=== PATIENT | female | born 1930 | race Caucasian/White ===

== ENCOUNTER 2018-06-04 05:19 | Inpatient (IN) | payer MEDICARE, OTHER, MEDICAID ==
[2018-06-04 11:23] LABS: Bacteria/HPF None Seen HPF (None Seen); Bilirubin Negative (Negative); Blood, Urine Negative (Negative); Clarity CLEAR (Clear); Glucose, Urine (Dipstick) Negative (Negative); Leukocyte Trace (Negative); Nitrite Negative (Negative); Protein, Urine (Dipstick) Negative (Neg-Trace); RBC/HPF 0-3 HPF (0-3); Specific Gravity, Urine 1.013 (1.002-1.036); Urobilinogen 0.2 mg/dL (0.2-1.0)
[2018-06-04 11:24] LABS: Hyaline Casts/LPF 0-3 HYALINE CAST LPF (0-3 Hyaline); Other Casts/LPF None Seen LPF (0-3 Hyaline); Pathc Cast-AUWi Flag 2.61 (0-2.49)
[2018-06-04 11:25] LABS: Renal Epithelial None Seen HPF (0-3); Transitional Epithelial NONE SEEN HPF (0-3)
--- NOTE | 2018-06-04 11:28 | CT ---
CT BRAIN: Date: 06-04-18 Provided Clinical History: Shortness of breath. Weakness. FINDINGS: Comparison is made with the examination performed 10-18-12. Extensive post-operative changes involving the frontal and parietal skull near the vertex are again d emonstrated. Encephalomalacia related to prior tumor resection involving the right high frontoparieta l region is demonstrated. The ventricular system is unchanged in appearance. There is ex vacuo dilata tion of the lateral ventricle on the right. There is no evidence for intracranial hemorrhage or mass effect. There are multiple small lucencies present throughout the remaining frontal and parietal calv arium. This appears more conspicuous than on the prior examination. This could reflect radiation hines ge. No overt soft tissue mass is apparent. IMPRESSION: 1. No evidence for intracranial hemorrhage or mass effect. 2. Extensive post-operative changes are again demonstrated. Appearance of the calvarium as described above. As indicated, follow up MR brain could be performed. POS: [facility]KA
[2018-06-04 11:41] LABS: CKMB 1.3 ng/mL (0-6.6); Troponin I 0.018 ng/mL (< 0.028)
[2018-06-04 11:42] LABS: ALT (SGPT) 13 U/L (8-55); AST (SGOT) 20 U/L (5-34); Albumin 3.2 g/dL (3.4-4.8); Alkaline Phosphatase 63 U/L (40-150); Anion Gap 12 mmol/L (10-20); BUN (Urea Nitrogen) 15 mg/dL (9.8-20.1); Bilirubin, Total 0.4 mg/dL (0.2-1.2); CK (CPK) 24 U/L (29-168); Calc. Creatinine Clearance 0 mL/min (70-130); Calcium 9.4 mg/dL (7.8-10.44); Carbon Dioxide 25 mmol/L (23-31); Chloride 107 mmol/L (98-107); Estimated GFR-MDRD 56; Globulin 4.4 g/dL (2.4-3.5); Glucose 95 mg/dL (83-110); Potassium 4.5 mmol/L (3.5-5.1); Protein, Total 7.6 g/dL (6.0-8.3); Sodium 139 mmol/L (136-145)
[2018-06-04 11:47] LABS: Red Blood Cell (RBC) Count 4.07 mill/uL (4.20-5.40); White Blood Cell (WBC) Count 7.3 thou/uL (4.8-10.8)
[2018-06-04 11:48] LABS: Hemoglobin 13.2 g/dL (12.0-16.0); Mean Corpuscular HGB CONC 32.5 g/dL (32.0-36.0); Mean Corpuscular Hemoglobin 32.5 pg (27.0-31.0); Mean Corpuscular Volume 99.9 fL (78.0-98.0); RBC Distribution Width 13.3 % (11.5-14.5)
[2018-06-04 11:49] LABS: #Lymphocytes 1.3 thou/uL (1.20-3.40); #Neutrophils 5.1 thou/uL (1.40-6.50); %Basophils 0.3 % (0.0-1.0); %Eosinophils 2.2 % (0.0-10.0); %Lymphocytes 17.8 % (21.0-51.0); %Monocytes 9.9 % (0.0-10.0); %Neutrophils 69.8 % (42.0-75.0); Mean Platelet Volume 7.1 fL (7.4-10.4); Platelet Count 292 thou/uL (130-400)
[2018-06-04 11:50] LABS: #Eosinphils 0.2 thou/uL (0.0-0.7); #Monocytes 0.7 thou/uL (0.11-0.59)
--- NOTE | 2018-06-04 12:03 | RAD ---
PORTABLE CHEST: Date: 06-04-18 Provided Clinical History: Shortness of breath. FINDINGS: Comparison is made with examination from 05-31-18. The cardiac and mediastinal silhouette is unchanged in appearance. There is a somewhat nodular densit y in the right lower lung zone laterally. The left lung appears clear. Multiple surgical clips overli e the left hemithorax. Vascular calcifications are seen. No pleural fluid or pneumothorax apparent. IMPRESSION: 1. Nodular density at right lung base. This should be further investigated with PA and lateral views of the chest. Code T POS: [facility]KA
[2018-06-04] MEDS ORDERED: HYDROcodone/Acetaminophen 5/325 mg Tablet PO PRN (13:29)
[2018-06-04] MEDS ORDERED: Acetaminophen 325 MG TAB PO PRN (13:29)
[2018-06-04] MEDS ORDERED: Ondansetron ODT 4 MG TAB PO PRN (13:29)
[2018-06-04] MEDS ORDERED: Loperamide HCl 2 MG CAP PO PRN (13:29)
--- NOTE | 2018-06-04 16:52 | HP ---
DATE OF ADMISSION: 06/04/2018 CHIEF COMPLAINT: Increasing weakness. HISTORY OF PRESENT ILLNESS: This is an 87-year-old female with a history of dementia, brain tumor, l eft-sided breast cancer, Parkinson's disease, multiple TIAs, possibly a stroke in the past, comes in with increasing weakness. The patient at the baseline as of last month could feed herself with the h elp and assist, could walk with a walker. She could also turn and pivot and transfer with the help f rom bed to the chair, but past 1 month, family has noticed there is a significant decline in overall strength and patient no longer can feed herself. She appears to be more confused seem to be having d ifficulty communicating and completing her sentences. So patient's family brought the patient here to be further evaluated. PAST MEDICAL HISTORY: Significant for Parkinson's, brain tumor, left breast cancer, dementia, hypert ension, TIAs, possible stroke x1. PAST SURGICAL HISTORY: Significant for, 1. Brain tumor resection that was benign in nature, followed by radiation. 2. Left breast cancer removal. REVIEW OF SYSTEMS: Constitutional: The patient does not report any pain, fever or chills. HEENT: The patient denies any eye pain or drainage, vision changes. Denies any rhinorrhea or sore throat. Denies any discharge from the ears. Cardiovascular: The patient denies any chest pain or palpitatio ns. Respiratory: The patient denies any cough or shortness of breath, wheezes or rales. Gastrointe stinal: The patient denies any nausea or vomiting or constipation. Genitourinary: The patient wong es any dysuria or hematuria. Neurologic: Patient complains of increasing weakness and for more deta ils, please see HPI. PHYSICAL EXAMINATION: VITAL SIGNS: Blood pressure 140/80, heart rate 78, respiratory rate 18, pulse 84. CONSTITUTIONAL: Vital signs reviewed. Patient is afebrile. Vital signs within normal limits. HEENT: Normocephalic, atraumatic head. Eye, eyelids and conjunctivae are normal for inspection. Pu pils are round and reactive to light. Ears and external canal are within normal limits. No redness or discharge seen. Trachea is in the midline. No signs of any sore throat. RESPIRATORY AND CHEST: Examination is within normal limits. No wheezes or rales. Good airflow. CARDIOVASCULAR: Cardiovascular assessment is within normal limits. Regular rate and rhythm. No mur murs. ABDOMEN: Soft, NTND. +4 bowel sounds. NEUROLOGY: Mild dementia. Some confusion, but patient is alert and oriented x2. Upper extremity st rength is within normal limits. Lower extremity strength and motor strength is decreased. Gait not examined. PSYCHIATRIC: The patient is alert and oriented x2. Normal affect. ASSESSMENT AND PLAN: 1. Weakness: CT of the head was done which showed significant changes that has been stable over the past few years. CT shows the past tumor resection and radiation changes, multiple chronic lacunar c hanges, so patient will be continued on home aspirin and statin. Neurology will be consulted. I hav e deferred the MRI as the management is not going to change irrespective of the findings on the CT of the head. 2. Code status, discussed the patient's code status with the family. She is DNR. No aggressive mich sures to keep the patient alive. 3. Hypertension. The patient's blood pressure medications will be on hold for now. We will let the permissive high blood pressures. The medications to be restarted when the patient goes back to her rehabilitation. 4. Possible discharge tomorrow back to the senior living that she is from. 5. PT, OT and speech has been consulted and speech evaluates the patient. We will restart the patient on the diet depending upon the recommendations. Right now, I will just continue with some I V fluids to keep the patient hydrated, but patient wants to try something p.o., which will be deferre d until the speech evaluates the patient.
[2018-06-04] MEDS: Sodium Chloride 0.9% 1,000 ML IV SCH ×2 (17:37→21:06)
[2018-06-04] MEDS ORDERED: Prevnar 13-Val Conj/PF 0.5 ML SYRINGE IM ONE (18:15)
[2018-06-04] MEDS: Simvastatin 5 MG TAB PO SCH (21:06)
[2018-06-05 04:25] LABS: #Eosinphils 0.2 thou/uL (0.0-0.7); #Lymphocytes 1.4 thou/uL (1.20-3.40); #Monocytes 0.6 thou/uL (0.11-0.59); #Neutrophils 2.9 thou/uL (1.40-6.50); %Eosinophils 3.4 % (0.0-10.0); %Lymphocytes 27.9 % (21.0-51.0); %Monocytes 11.6 % (0.0-10.0); %Neutrophils 57.1 % (42.0-75.0); Mean Corpuscular HGB CONC 32.4 g/dL (32.0-36.0); Mean Corpuscular Hemoglobin 32.4 pg (27.0-31.0); Mean Platelet Volume 7.3 fL (7.4-10.4); Platelet Count 246 thou/uL (130-400); RBC Distribution Width 13.3 % (11.5-14.5); White Blood Cell (WBC) Count 5.1 thou/uL (4.8-10.8)
[2018-06-05 04:46] LABS: Anion Gap 7 mmol/L (10-20); BUN (Urea Nitrogen) 15 mg/dL (9.8-20.1); Calc. Creatinine Clearance 50 mL/min (70-130); Calcium 8.7 mg/dL (7.8-10.44); Carbon Dioxide 25 mmol/L (23-31); Chloride 112 mmol/L (98-107); Estimated GFR-MDRD 74; Glucose 85 mg/dL (83-110); Potassium 4.1 mmol/L (3.5-5.1); Sodium 140 mmol/L (136-145)
[2018-06-05] MEDS: Sodium Chloride 0.9% 1,000 ML IV SCH (08:16)
[2018-06-05] MEDS: Cyanocobalamin (Vitamin B-12) 1,000 MCG TAB PO SCH (08:16)
[2018-06-05] MEDS: Aspirin 81 mg Enteric Coated Tablet PO SCH (08:16)
[2018-06-05] MEDS: Enoxaparin Sodium 40 MG/0.4 ML SYRINGE SC SCH (08:21)
[2018-06-05] MEDS ORDERED: Metoprolol Tartrate 25 MG TAB PO SCH (12:00)
[2018-06-05] MEDS: cefTRIAXone\\ROCEPHIN 1 GM in Sodium Chloride 0.9% 100 ML IVPB SCH (12:33)
[2018-06-05 14:53] VITALS: BMI 21.3
[2018-06-05] MEDS: Simvastatin 5 MG TAB PO SCH (21:26)
[2018-06-05] MEDS: Metoprolol Tartrate 25 MG TAB PO SCH (21:26)
--- NOTE | 2018-06-05 22:01 | PDOC.PN ---
- Subjective Encounter Start Date: 06/05/18 Encounter Start Time: 13:00 Patient seen and examined for Gen weakness. No new complaints. No new focal weakness. No overnight events - Objective Resuscitation Status: Resuscitation Status DNR:Do Not Resuscitate MAR Reviewed: Yes Vital Signs & Weight: Vital Signs (12 hours) Temp Pulse Resp BP Pulse Ox 06/05/18 20:00 97.9 F 66 16 129/71 94 L 06/05/18 16:00 97.8 F 66 18 147/85 H 94 L 06/05/18 11:00 97.7 F 100 18 158/91 H 95 06/05/18 10:27 97.8 F 77 16 173/105 H 95 Weight Admit Weight 132 lb 1 oz Weight 132 lb 1 oz I&O: 06/04/18 06/05/18 06/06/18 06:59 06:59 06:59 Intake Total 587 1450 Balance 587 1450 Result Diagrams: 06/05/18 03:58 06/05/18 03:58 Radiology Reviewed by me: Yes (CT brain - No acute findings) Phys Exam - Physical Examination Constitutional: NAD Respiratory: no wheezing, no rhonchi Cardiovascular: RRR, no rub Gastrointestinal: soft, non-tender, positive bowel sounds Musculoskeletal: no edema Neurological: moves all 4 limbs No new focal findings Dx/Plan - Plan plan discussed w/ family, PT/OT, DVT proph w/SCDs IMPRESSION: 1. Gen weakness/ ?CVA - improved 2. Recent UTI - on Atbx 3 HTN 4. DNR 5. Dementia 6. Parkinson disease 7. h/o TIAs PLAN: Await Neuro input Cont ASA Cont Atbx for recent UTI MT meds list not available Cont current meds as below Review of Systems - Review of Systems Respiratory: negative: Cough, Dry, Shortness of Breath, Hemoptysis, SOB with Excertion, Pleuritic Pain, Sputum, Wheezing Cardiovascular: negative: chest pain, palpitations, orthopnea, paroxysmal nocturnal dyspnea, edema, light headedness, other - Medications/Allergies Allergies/Adverse Reactions: Allergies Allergy/AdvReac Type Severity Reaction Status Date / Time No Known Allergies Allergy Verified 06/01/18 06:35 Medications: Current Medications Acetaminophen (Tylenol) 650 mg PO Q4H PRN PRN Reason: Headache/Fever or Pain Hydrocodone Bitart/Acetaminophen ([place] 5/325) 1 tab PO Q4H PRN PRN Reason: Moderate Pain (4-6) Aspirin (Ecotrin) 81 mg PO DAILY [facility] Last Admin: 06/05/18 08:16 Dose: Not Given Cyanocobalamin (Vitamin B-12) 1,000 mcg PO DAILY [facility] Last Admin: 06/05/18 08:16 Dose: Not Given Enoxaparin Sodium (Lovenox) 40 mg SC 0900 [facility] Last Admin: 06/05/18 08:21 Dose: 40 mg Sodium Chloride (Normal Saline 0.9%) 1,000 mls @ 75 mls/hr IV .[id number] [facility] Last Admin: 06/05/18 08:16 Dose: 1,000 mls Ceftriaxone Sodium 1 gm/ (Sodium Chloride) 100 mls @ 200 mls/hr IVPB Q24HR [facility] Last Admin: 06/05/18 12:33 Dose: 100 mls Loperamide HCl (Imodium) 2 mg PO PRN PRN PRN Reason: Diarrhea/Loose Stools Metoprolol Tartrate (Lopressor) 12.5 mg PO BID [facility] Last Admin: 06/05/18 21:26 Dose: 12.5 mg Ondansetron HCl (Zofran Odt) 4 mg PO Q6H PRN PRN Reason: Nausea/Vomiting Simvastatin (Zocor) 10 mg PO HS [facility] Last Admin: 06/05/18 21:26 Dose: 10 mg
--- NOTE | 2018-06-06 05:08 | CON ---
DATE OF CONSULTATION: 06/05/2018 REFERRING PROVIDER: Dr. Lola Patel. REASON FOR CONSULTATION: Increasing weakness. HISTORY OF PRESENT ILLNESS: Ms. Domingo is a pleasant 87-year-old female with multiple medical problems, has been consulted for evaluation of increasing weakness. History is very limited as patient is a poor historian, thus most of the history is obtained from the patient's dictated H and P note. Apparently, the patient has a history of brain tumor, dementia, Parkinson disease, and multiple TIAs. She is currently living in a prison. She was sent to a prison as she was noted to have increasing weakness according to the dictated H&P note. Patient was able to feed herself and assist in other activities. She was able to walk with a walker. This was one month ago. Over the past 1 month, family have noticed that she is requiring help to transfer from bed to a chair. She is also requiring help to feed herself. She is also having difficulty with communicating and completing sentences. PAST MEDICAL HISTORY: Significant for history of brain tumor post-resection, Parkinson disease, left breast cancer, dementia, hypertension, TIAs, and possible stroke. PAST SURGICAL HISTORY: Significant for brain tumor resection followed by radiation, left breast cancer removal. SOCIAL HISTORY: She lives in a prison. She does not smoke cigarettes, drink alcohol or use illicit drugs. CURRENT MEDICATIONS: Please review MAR. ALLERGIES: No known drug allergies. FAMILY HISTORY: Noncontributory. REVIEW OF SYSTEMS: As mentioned above in the HPI, otherwise negative. PHYSICAL EXAMINATION: VITAL SIGNS: Blood pressure of 147/85, pulse of 66, temperature of 97.8, respirations of 18, O2 sats of 94% on room air. GENERAL: A well-developed, well-nourished female in no apparent distress. RESPIRATORY: Clear to auscultation bilaterally. CARDIOVASCULAR: Regular rate and rhythm. NEUROLOGIC: Mental status: The patient is awake, alert, oriented to person. She was able to state her first and last name. She was able to state the name of the hospital and name of the town and [facility]. She is not able to answer current date, month, or year. She is able to follow simple commands as well as 2 step commands. Speech and language appears fluent. Cranial nerves: Pupils are 2 mm and reactive. Visual bland are full to threat. External muscles are intact. No nystagmus. Face is symmetric. Tongue and uvula are midline. Motor exam showed normal tone and bulk with a 5/5 strength in both upper extremities. There was no pronator drift noted in both upper extremities. Her strength in the right lower extremity is 5/5, strength in the left lower extremity is 4+/5. Sensory: Sensation appears intact. Deep tendon reflexes: 2+ reflexes in both upper and lower extremities. Babinski: Plantar responses flexion bilaterally. Coordination intact to [id number] and finger tapping bilaterally. LABORATORY DATA: Reviewed which included CBC, CMP. Urinalysis showing 4-6 wbc' s with trace leukocyte esterase and also 4-6 squamous epithelial cells present and nitrites were negative. IMAGING STUDIES: CT head without contrast was reviewed, which showed large area of encephalomalacia in the right posterior frontoparietal region with evidence for a right craniotomy. IMPRESSION: 1. Weakness. 2. Right frontoparietal brain tumor post-resection. 3. History of transient ischemic attacks. 4. Dementia. Ms. Domingo is a pleasant 87-year-old female who presented with the increasing weakness, it is difficult to how she is different neurologically compared to her baseline. I have spoken with the nurse of the patient who mentioned that patient was transferred from the prison, have noted increasing fatigue, tiredness, and weakness. Although on my exam, I did not appreciate any major weakness except the left lower extremity being weak which could be from her prior surgery. She has dementia, which also can be causing some of the deconditioning of her symptoms. At this time, I will recommend continuing current medical management. If there is a concern for new stroke, I would recommend obtaining MRI brain with and without contrast. No further neurologic workup needed from my standpoint otherwise. PERRY
[2018-06-06] MEDS: Sodium Chloride 0.9% 1,000 ML IV SCH (05:10)
[2018-06-06] MEDS: Aspirin 81 mg Enteric Coated Tablet PO SCH (08:34)
[2018-06-06] MEDS: Cyanocobalamin (Vitamin B-12) 1,000 MCG TAB PO SCH (08:37)
[2018-06-06] MEDS: Enoxaparin Sodium 40 MG/0.4 ML SYRINGE SC SCH (08:37)
[2018-06-06] MEDS: Metoprolol Tartrate 25 MG TAB PO SCH (08:44)
[2018-06-06 09:41] LABS: #Eosinphils 0.2 thou/uL (0.0-0.7); #Lymphocytes 1.5 thou/uL (1.20-3.40); #Monocytes 0.7 thou/uL (0.11-0.59); #Neutrophils 5.3 thou/uL (1.40-6.50); %Basophils 0.2 % (0.0-1.0); %Eosinophils 2.1 % (0.0-10.0); %Lymphocytes 19.6 % (21.0-51.0); %Monocytes 8.8 % (0.0-10.0); %Neutrophils 69.2 % (42.0-75.0); Hemoglobin 13.6 g/dL (12.0-16.0); Mean Corpuscular Hemoglobin 32.8 pg (27.0-31.0); Mean Corpuscular Volume 99.2 fL (78.0-98.0); Platelet Count 262 thou/uL (130-400); RBC Distribution Width 13.4 % (11.5-14.5); Red Blood Cell (RBC) Count 4.16 mill/uL (4.20-5.40); White Blood Cell (WBC) Count 7.7 thou/uL (4.8-10.8)
[2018-06-06 09:46] LABS: Anion Gap 12 mmol/L (10-20); BUN (Urea Nitrogen) 13 mg/dL (9.8-20.1); Calc. Creatinine Clearance 45 mL/min (70-130); Calcium 9.1 mg/dL (7.8-10.44); Carbon Dioxide 22 mmol/L (23-31); Chloride 110 mmol/L (98-107); Estimated GFR-MDRD 66; Glucose 131 mg/dL (83-110); Sodium 140 mmol/L (136-145)
[2018-06-06 09:51] LABS: Troponin I 0.013 ng/mL (< 0.028)
[2018-06-06] MEDS: cefTRIAXone\\ROCEPHIN 1 GM in Sodium Chloride 0.9% 100 ML IVPB SCH (12:08)
--- NOTE | 2018-06-06 15:05 | PDOC.EVN ---
Event Note - Event Note Event Note: ACP note - Plan of care discussed with patient and son in law. Diagnosis - Gen weakness with suspected CVA. Family declined MRI brain. They agreed with continue ASA 81 mg. Code Status - DNR. Time spent - 20 min.
--- NOTE | 2018-06-06 15:07 | PDOC.PN ---
- Subjective Encounter Start Date: 06/06/18 Encounter Start Time: 09:00 Patient seen and examined for Gen weakness. Patient was transferred to Stroke unit due to HR in 170s on BP monitor. No new focal deficits. No CP/SOB/ diaphoresis. No new complaints. No overnight events - Objective Resuscitation Status: Resuscitation Status DNR:Do Not Resuscitate MAR Reviewed: Yes Vital Signs & Weight: Vital Signs (12 hours) Temp Pulse Resp BP Pulse Ox 06/06/18 11:44 97.8 F 64 14 140/62 96 06/06/18 09:48 94 L 06/06/18 08:46 160 H 20 95/65 99 06/06/18 07:58 98.1 F 74 16 160/78 H 94 L 06/06/18 04:00 98.5 F 64 16 148/79 H 94 L Weight Admit Weight 132 lb 1 oz Weight 132 lb 1 oz I&O: 06/05/18 06/06/18 06/07/18 06:59 06:59 06:59 Intake Total 587 1450 300 Balance 587 1450 300 Result Diagrams: 06/06/18 09:13 06/06/18 09:13 Additional Labs: Laboratory Tests 06/06/18 06/06/18 09:13 12:15 Troponin I 0.013 0.020 EKG Reviewed by me: Yes (Tele ST) Phys Exam - Physical Examination Constitutional: NAD Respiratory: no wheezing, no rhonchi Cardiovascular: RRR, no rub Gastrointestinal: soft, non-tender, positive bowel sounds Musculoskeletal: no edema Neurological: non-focal, moves all 4 limbs No new focal deficits. Dx/Plan - Plan DVT proph w/SCDs IMPRESSION: 1. Gen weakness/ ?CVA - improved 2. Recent UTI - on IV Ceftriaxone 3 HTN 4. Tachyarrhythmia on medical floor ?SVT 5. Dementia 6. Parkinson disease 7. h/o TIAs PLAN: Neuro input appreciated No MRI per family request Cont ASA Cont Ceftriaxone Cont current meds as below Tele monitoring Case d/w Dr Almanza - who recommeded to continue ASA 81 mg. High risk of bleeding if dose increased. Review of Systems - Review of Systems Respiratory: negative: Cough, Dry, Shortness of Breath, Hemoptysis, SOB with Excertion, Pleuritic Pain, Sputum, Wheezing Cardiovascular: negative: chest pain, palpitations, orthopnea, paroxysmal nocturnal dyspnea, edema, light headedness, other - Medications/Allergies Allergies/Adverse Reactions: Allergies Allergy/AdvReac Type Severity Reaction Status Date / Time No Known Allergies Allergy Verified 06/01/18 06:35 Medications: Current Medications Acetaminophen (Tylenol) 650 mg PO Q4H PRN PRN Reason: Headache/Fever or Pain Hydrocodone Bitart/Acetaminophen ([place] 5/325) 1 tab PO Q4H PRN PRN Reason: Moderate Pain (4-6) Aspirin (Ecotrin) 81 mg PO DAILY [facility] Last Admin: 06/06/18 08:34 Dose: 81 mg Cyanocobalamin (Vitamin B-12) 1,000 mcg PO DAILY [facility] Last Admin: 06/06/18 08:37 Dose: 1,000 mcg Sodium Chloride (Normal Saline 0.9%) 1,000 mls @ 75 mls/hr IV .[id number] [facility] Last Admin: 06/06/18 05:10 Dose: 1,000 mls Ceftriaxone Sodium 1 gm/ (Sodium Chloride) 100 mls @ 200 mls/hr IVPB Q24HR [facility] Last Admin: 06/06/18 12:08 Dose: 100 mls Loperamide HCl (Imodium) 2 mg PO PRN PRN PRN Reason: Diarrhea/Loose Stools Metoprolol Succinate (Toprol Xl) 50 mg PO DAILY [facility] Ondansetron HCl (Zofran Odt) 4 mg PO Q6H PRN PRN Reason: Nausea/Vomiting Simvastatin (Zocor) 10 mg PO HS [facility] Last Admin: 06/05/18 21:26 Dose: 10 mg
[2018-06-06] MEDS: Famotidine 20 MG TAB PO SCH (21:45)
[2018-06-06] MEDS: Simvastatin 5 MG TAB PO SCH (21:46)
[2018-06-07] MEDS: Famotidine 20 MG TAB PO SCH (08:03)
[2018-06-07] MEDS: Aspirin 81 mg Enteric Coated Tablet PO SCH (08:03)
[2018-06-07] MEDS: Cyanocobalamin (Vitamin B-12) 1,000 MCG TAB PO SCH (08:03)
[2018-06-07] MEDS: cefTRIAXone\\ROCEPHIN 1 GM in Sodium Chloride 0.9% 100 ML IVPB SCH (11:26)
[2018-06-07 11:59] VITALS: BP 140/60; TEMP 97.5
--- NOTE | 2018-06-08 10:26 | DIS ---
DATE OF DISCHARGE: 06/07/2018 DISCHARGE DISPOSITION: To [place]. DISCHARGE MEDICATIONS: Same as admission medications. No changes were made. Patient was seen and examined on the day of discharge, denies any new complaints, no chest pain, shor tness of breath, palpitations. BRIEF HOSPITAL COURSE: The patient is an 87-year-old female with Parkinson's disease, history of bra in tumor status post resection, dementia and multiple TIAs and CVA in the past, presented to the hosp ital with increasing weakness. Please refer to the history and physical dated 06/04/[address] Aryan Patel for further details. It was unclear which side was more weaker than the other. The patient was admitted to the medical floor by the admitting physician with the diagnosis of genera lized weakness, rule out cerebrovascular accident. The patient was seen by Neurology, Dr. Alba Almanza . CT scan of the brain on admission was negative for acute findings. MRI was offered to the family; however, the family declined since it would not change the management. I discussed with Dr. Alba blum, who recommended to continue aspirin. The patient is at high risk of bleeding if aspirin dose wa s increased. Dr. Almanza recommended to continue the same dose of aspirin. She had an episode of tachy cardia on the medical floor for which she was transferred to the telemetry unit. She did not have an y recurrence of the tachycardia. Please note that on admission, the list of medications were not jose ilable. She was not getting full dose of Lopressor that could be the etiology of the tachycardia. S he will benefit from event monitor if she has recurrent tachycardia episodes. Plan of care was discu ssed with the family in detail. They stated understanding. Please note that patient recently had UT I and completed antibiotics during this hospital stay. For this reason, ciprofloxacin has been disco ntinued. She will continue aspirin, metoprolol, and Zocor. FINAL DIAGNOSES: 1. Generalized weakness with suspected CVA. Symptoms have completely resolved. Possibilities inclu de TIA versus encephalopathy from urinary tract infection. 2. Recent urinary tract infection. Patient completed antibiotics. 3. Hypertension. 4. Tachyarrhythmia on the medical floor, probably SVT. Patient did not have any recurrence while on the tele monitor. 5. Dementia. 6. Parkinson's disease. 7. History of transient ischemic attacks, on aspirin. 8. Chronic kidney disease stage 2. 9. Microcytosis with normal vitamin B12 in the past. The patient is also on vitamin B12 supplementa tion. Plan of care was discussed with the patient and the family in detail. They stated understanding. Total time coordinating the discharge of this patient was 34 minutes.
--- NOTE | 2018-06-10 10:02 | EKG ---
Test Reason : Blood Pressure : / mmHG Vent. Rate : 106 BPM Atrial Rate : 106 BPM P-R Int : 196 ms QRS Dur : 080 ms QT Int : 336 ms P-R-T Axes : 034 -47 026 degrees QTc Int : 446 ms Sinus tachycardia Left anterior fascicular block Possible Anterior infarct (cited on or before 31-MAY-2018) Abnormal ECG When compared with ECG of 31-MAY-2018 19:18, (Unconfirmed) Premature ventricular complexes are no longer Present T wave inversion less evident in Anterior leads Confirmed by DR. Jose MONTES ([id number]) on 06/10/2018 10:01:42 AM Referred By: SUNNY Confirmed By:DR. Jose MONTES
== END 2018-06-07 13:35 | DRG 65 ==
LOC: ERS 05:19 → T4-B 16:54 → 2SE 06-06 09:25
PROVIDERS: ADMIT Family Medicine; ATTEND Family Medicine
DX: I63.9 Cerebral infarction, unspecified (principal); N39.0 Urinary tract infection, site not specified; R53.1 Weakness; G20 Parkinson's disease; F02.80 Dementia in other diseases classified elsewhere, unspecified severity, without behavioral disturbance, psychotic disturbance, mood disturbance, and anxiety; I12.9 Hypertensive chronic kidney disease with stage 1 through stage 4 chronic kidney disease, or unspecified chronic kidney disease; N18.2 Chronic kidney disease, stage 2 (mild); R00.0 Tachycardia, unspecified; D50.9 Iron deficiency anemia, unspecified; Z66 Do not resuscitate; Z85.3 Personal history of malignant neoplasm of breast; Z86.73 Personal history of transient ischemic attack (TIA), and cerebral infarction without residual deficits; Z86.69 Personal history of other diseases of the nervous system and sense organs; Z79.2 Long term (current) use of antibiotics; Z79.82 Long term (current) use of aspirin
CPT/HCPCS: 36415; 51701; 70450; 71045; 80048; 80053; 80069; 81001; 81003; 81015; 82550; 82553; 83735; 84484; 85025; 87040; 87077; 87086; 87186; 93005; 93010; 96361; 96365; 96366; 96372; A4216; A4353; G0378; G8978-GP-CM; G8979-GP-CL; G8981-GP-CM; G8982-GP-CM; G8983-GP-CM; G8987-GO-CK; G8988-GO-CJ; G8996-GN-CI; G8997-GN-CI; J0696; J1650; J7050

== ENCOUNTER 2018-10-19 18:55 | Emergency (ER) | payer MEDICARE, OTHER ==
[2018-10-19] MEDS ORDERED: levETIRAcetam 500 MG/100 ML PREMIX BAG ONE (20:12)
[2018-10-19 20:21] LABS: #Eosinphils 0.1 thou/uL (0.0-0.7); #Lymphocytes 1.2 thou/uL (1.20-3.40); #Monocytes 0.6 thou/uL (0.11-0.59); #Neutrophils 3.6 thou/uL (1.40-6.50); %Basophils 0.8 % (0.0-1.0); %Eosinophils 2.5 % (0.0-10.0); %Lymphocytes 21.4 % (21.0-51.0); %Monocytes 11.2 % (0.0-10.0); %Neutrophils 64.2 % (42.0-75.0); Hemoglobin 13.9 g/dL (12.0-16.0); Mean Corpuscular HGB CONC 31.1 g/dL (32.0-36.0); Mean Corpuscular Hemoglobin 31.5 pg (27.0-31.0); Mean Platelet Volume 7.9 fL (7.4-10.4); Platelet Count 202 thou/uL (130-400); RBC Distribution Width 12.4 % (11.5-14.5); Red Blood Cell (RBC) Count 4.42 mill/uL (4.20-5.40); White Blood Cell (WBC) Count 5.6 thou/uL (4.8-10.8)
[2018-10-19 20:57] LABS: Anion Gap 12 mmol/L (10-20); BUN (Urea Nitrogen) 36 mg/dL (9.8-20.1); Calc. Creatinine Clearance 0 mL/min (70-130); Calcium 9.9 mg/dL (7.8-10.44); Carbon Dioxide 24 mmol/L (23-31); Chloride 108 mmol/L (98-107); Estimated GFR-MDRD 32; Glucose 120 mg/dL (83-110); Potassium 4.3 mmol/L (3.5-5.1); Sodium 140 mmol/L (136-145)
== END 2018-10-19 21:50 ==
LOC: ERS 18:55
DX: H61.23 Impacted cerumen, bilateral (principal); I50.9 Heart failure, unspecified; G20 Parkinson's disease; F03.90 Unspecified dementia, unspecified severity, without behavioral disturbance, psychotic disturbance, mood disturbance, and anxiety; Z79.82 Long term (current) use of aspirin; Z86.73 Personal history of transient ischemic attack (TIA), and cerebral infarction without residual deficits; W05.0XXA Fall from non-moving wheelchair, initial encounter; Z79.899 Other long term (current) drug therapy
CPT/HCPCS: 36415; 80048; 85025; 96374; J1953

== ENCOUNTER 2018-12-11 15:05 | Outpatient (CLI) | payer MEDICARE, OTHER, MEDICAID ==
--- NOTE | 2018-12-11 16:46 | RAD ---
LEFT RIBS THREE VIEWS: HISTORY: Pain. COMPARISON: None. FINDINGS: Mild bone demineralization. No fracture. No cortical irregularity or periosteal reaction. There does appear to be some pneumatization along the distal aspect of the left clavicle, nonspecific . Multiple surgical clips are noted. IMPRESSION: Unremarkable left rib radiograph series. No fracture. POS: [facility]
== END 2018-12-11 15:06 | disposition home or self-care (01) ==
LOC: RAD 15:05
PROVIDERS: ATTEND Internal Medicine Geriatric Medicine
DX: R07.81 Pleurodynia (principal)